=== PATIENT | female | born 1985 | race Caucasian/White ===

== ENCOUNTER 2019-07-18 22:55 | Emergency (ER) | payer OTHER, SELFPAY ==
[2019-07-18 22:58] VITALS: BP 125/70; PULSE 105; RESP 20; TEMP 36.8; O2SAT 96; BMI 47.9
--- NOTE | 2019-07-18 22:58 | DI.RAD.S_ITS ---
PROCEDURE: XR CHEST 2V INDICATIONS: cough with shortness of breath TECHNIQUE: 2 views of the chest were acquired. COMPARISON: None. FINDINGS: Surgical changes and devices: None. Lungs and pleura: An incomplete inspiratory result is noted, causing a crowded appearance to the lung markings. There is a mild amount of fluid seen along the right minor fissure. Minimal streaky opacities can be seen involving the lower lungs. Mediastinum: Mediastinal contours are normal. Heart size is normal. Bones and chest wall: No suspicious bony abnormalities. Soft tissues appear unremarkable. IMPRESSION: A small amount of fluid can be seen along the right greater fissure. Minimal infiltrates versus atelectasis at the lung bases. As clinically appropriate, a short-term followup chest series (with PA and lateral views) performed in deep inspiration is suggested for further evaluation. Note: No significant discrepancy from the preliminary report. Dictated by: Albert Overton M.D. on 07/19/2019 at 8:15 Approved by: Albert Overton M.D. on 07/19/2019 at 8:17
[2019-07-19] MEDS: AZITHROMYCIN 250 MG TABLET 500 MG PO (00:09)
[2019-07-19 00:25] VITALS: BP 100/48; PULSE 82; RESP 20; TEMP 36.9; O2SAT 98
--- NOTE | 2019-07-19 03:12 | ED.URI ---
HPI - URI/Sore Throat General Chief Complaint: Upper Respiratory Symptoms Stated Complaint: cough x3 wks, now hurts to breath Time Seen by Provider: 07/18/19 22:58 Source: patient Mode of arrival: Ambulatory Limitations: no limitations History of Present Illness HPI Narrative: 34-year-old female nonsmoker presents with her family in the chief complaint cough for approximately 3 weeks. She has had a bit of a runny nose but no ear pain, fever nor chest pain. She denies nausea, vomiting or diarrhea. Related Data Previous Rx's Medication Instructions Recorded azithromycin See Rx Instructions .ROUTE 07/18/19 .COMPLEX #6 tab benzonatate [Tessalon Perles] 100 mg PO BID-TID PRN #10 cap 07/18/19 Allergies Allergy/AdvReac Type Severity Reaction Status Date / Time No Known Drug Allergies Allergy Verified 07/19/19 00:10 Review of Systems Constitutional Constitutional: Denies chills, Denies fatigue, Denies fever(s), Denies frequent falls, Denies lethargy and Denies weakness Eyes Eyes: Denies change in vision, Denies eye discharge, Denies irritation and Denies loss of vision ENT Ears, Nose, Mouth, and Throat: Denies change in voice, Denies dizziness, Reports nasal congestion, Denies neck pain, Denies sore throat and Denies throat swelling Cardiovascular Cardiovascular: Denies chest pain, Denies irregular heart rhythm, Denies lightheadedness, Denies palpitations, Denies dyspnea, Denies dyspnea on exertion and Denies orthopnea Respiratory Respiratory: Reports cough, Denies dyspnea, Denies dyspnea on exertion and Denies wheezing Gastrointestinal Gastrointestinal: Denies abdominal pain, Denies change in bowel habits, Denies diarrhea, Denies nausea and Denies vomiting Genitourinary Genitourinary: Denies hematuria, Denies flank pain, Denies urinary incontinence and Denies urinary urgency Musculoskeletal Musculoskeletal: Denies back pain, Denies muscle weakness, Denies neck pain, Denies numbness and Denies tingling Integumentary/Breasts Skin/Breast: Denies pruritus, Denies erythema, Denies rash and Denies wounds Neurologic Neurologic: Denies behavioral changes, Denies confusion, Denies dizziness, Denies frequent falls, Denies loss of vision, Denies numbness, Denies tingling and Denies weakness Psychiatric Psychiatric: Denies anxiety, Denies behavioral changes, Denies confusion, Denies depression, Denies homicidal ideation and Denies suicidal ideation Endocrine Endocrine: Denies fatigue, Denies flushing and Denies palpitations Hematologic/Lymphatic Hematologic/Lymphatic: Denies easy bruising Allergic/Immunologic Allergic/Immunologic: Denies urticaria, Denies throat swelling and Denies wheezing Patient History Social History Smoking Status: Never smoker Substance Use Type: does not use Exam Narrative Exam Narrative: GENERAL: [34] year old patient appears stated age. Morbidly obese, non toxic HEAD: Atraumatic. Normocephalic. EYES: Pupils equal round and reactive. Extraocular motions intact. No scleral icterus. No injection or drainage. ENT: Clear post nasal drip Nose without bleeding, purulent drainage. Throat without erythema, tonsillar hypertrophy or exudate. Airway patent. NECK: Trachea midline. Non tender CARDIOVASCULAR: Regular rate and rhythm without murmurs, gallops, or rubs. RESPIRATORY: Clear to auscultation. Breath sounds equal bilaterally. No wheezes, rales, or rhonchi. GASTROINTESTINAL: Abdomen soft, non-tender, nondistended. EXTREMITIES: No edema or joint tenderness. BACK: Nontender without deformity or crepitance. No flank tenderness. NEURO: AOx3. SKIN: No rash or erythema of visible areas Initial Vital Signs Initial Vital Signs: Vital Signs Temperature 98.3 F 07/18/19 22:58 Pulse Rate 105 H 07/18/19 22:58 Respiratory Rate 20 07/18/19 22:58 Blood Pressure 125/70 07/18/19 22:58 Pulse Oximetry 96 07/18/19 22:58 Course Orders Ordered: ED Orders 07/18/19 22:58 XR chest 2V Stat Discontinued Medications Azithromycin (Zithromax) 500 mg PO NOW ONE Stop: 07/18/19 23:29 Last Admin: 07/19/19 00:09 Dose: 500 mg Documented by: ANGELA Vital Signs Vital signs: Vital Signs - 8 hr 07/18/19 22:58 07/19/19 00:25 Temperature 98.3 F 98.4 F Pulse Rate 105 H 82 Respiratory Rate 20 20 Blood Pressure 125/70 100/48 L Pulse Oximetry 96 98 MDM - URI/Sore Throat Imaging Data Chest x-ray: Attestation: I personally reviewed and interpreted this imaging study as follows: My impression: left lower lobe pna, fluid in R horizontal fissure Discharge Plan Departure Patient Disposition: Home Clinical Impression: Atypical pneumonia Discharge Date/Time: 07/19/19 00:25 Instructions: DI for Atypical Pneumonia Activity Restrictions/Additional Instructions: *You have been diagnosed with [acute atypical pneumonia] *What to do: *Take medications as directed *Follow up with your primary care provider in 2-3 days, call for an appointment. Let them know you were seen in the Emergency Department and that we ask that you be seen in follow up *Return to ER if you should have any new, worsening or concerning symptoms Prescriptions: New azithromycin 250 mg tablet See Rx Instructions .ROUTE .COMPLEX Qty: 6 RF: 0 benzonatate [Tessalon Perles] 100 mg capsule 100 mg PO BID-TID PRN (Reason: cough) Qty: 10 RF: 0
== END 2019-07-19 00:25 | disposition home or self-care (01) ==
PROVIDERS: Emergency Provider Emergency Medicine
DX: J18.9 Pneumonia, unspecified organism (principal)
CPT/HCPCS: 71046; 99282; 99283

== ENCOUNTER → 2020-05-07 12:47 | Outpatient (CLI) | payer OTHER, SELFPAY ==
--- NOTE | 2020-05-07 | DI.MRI.S_ITS ---
PROCEDURE: MR KNEE LT WO CON INDICATIONS: Pain in unspecified knee TECHNIQUE: Noncontrast sagittal PD fast spin echo and T2 fast spin echo with fat saturation, sagittal 3-D FLASH with fat saturation; coronal T1 spin echo and PD fast spin echo with fat saturation, and axial PD fast spin echo with fat saturation through the knee. COMPARISON: None. FINDINGS: FINDINGS: Image quality: Degraded by patient's body habitus Menisci: Linear oblique high T2 signal intensity within the posterior horn medial meniscus is present, demonstrating inferior articular surface extension. Linear oblique high T2 signal intensity within the posterior horn lateral meniscus is present, demonstrating inferior articular surface extension. Cruciate ligaments: The anterior and posterior cruciate ligaments appear intact. Medial structures: The medial collateral ligament appears intact. Visualized portions of the pes anserinus tendons appear normal. No abnormal bursal fluid. Lateral structures: The lateral collateral ligament, long and short heads of the biceps femoris tendon appear intact. The popliteus tendon appears normal. Iliotibial band appears normal. Anterior structures: The quadriceps and patellar tendons appear intact. Lateral patellar subluxation. No femoral trochlear dysplasia or ventral trochlear prominence. No edema in the infrapatellar fat pad. Bones and cartilage: No bone marrow contusions or fractures. Red marrow reconversion within the distal femur and proximal tibia. Mild tricompartmental periarticular osteophyte formation. Multiple subchondral cysts and degenerative marrow edema within the patellar apex and lateral patellar facet. Severe articular cartilage loss overlies the lateral femoral trochlea and lateral patellar facet. Severe articular cartilage loss overlies the patellar apex. Joint space: There is a moderate knee joint effusion and a trace Anderson's cyst. There are multiple intra-articular loose bodies measuring less than 10 mm short axis. Small ganglion cyst along the popliteus is present. Normal appearing synovial plicae are incidentally noted. IMPRESSION: 1. Limited examination secondary to body habitus. 2. Findings consistent with lateral patellofemoral friction syndrome in the appropriate clinical setting. 3. Medial and lateral meniscal tearing. 4. Tricompartmental osteoarthritis with associated articular cartilage loss. 5. Knee joint effusion and intra-articular loose bodies. Dictated by: Amalia Soliman M.D. on 05/09/2020 at 11:18 Approved by: Amalia Soliman M.D. on 05/09/2020 at 11:22
== END ==
PROVIDERS: Referring Provider Orthopaedic Surgery; Visit Provider Orthopaedic Surgery
DX: M25.562 Pain in left knee (principal); S83.282A Other tear of lateral meniscus, current injury, left knee, initial encounter; S83.242A Other tear of medial meniscus, current injury, left knee, initial encounter; M17.12 Unilateral primary osteoarthritis, left knee; M25.462 Effusion, left knee
CPT/HCPCS: 73721

== ENCOUNTER 2020-05-22 14:37 | Emergency (ER) | payer OTHER, SELFPAY ==
[2020-05-22 14:47] VITALS: BP 133/68; PULSE 96; RESP 16; TEMP 36.9; O2SAT 100; BMI 50.1
--- NOTE | 2020-05-22 14:51 | DI.RAD.S_ITS ---
PROCEDURE: XR KNEE LT 3V INDICATIONS: right knee pain, knee stuck TECHNIQUE: 3 views of the knee were acquired. COMPARISON: None. FINDINGS: Bones: No fractures or dislocations. No suspicious bony lesions. Chondrocalcinosis. Buckle lateral compartment osteophytes. Smaller medial compartment osteophytes. Soft tissues: Small joint effusion. No suspicious soft tissue calcifications. IMPRESSION: Degenerative arthritis of the left knee. No evidence acute bony abnormality of the left knee. If clinical suspicion and/or symptoms persist, further assessment with repeat plain films, or advanced imaging (e.g., CT, MRI, or bone scan) may be helpful for further assessment. Dictated by: Pj Gleason M.D. on 05/22/2020 at 14:28 Approved by: Pj Gleason M.D. on 05/22/2020 at 14:29
[2020-05-22] MEDS: HYDROCODONE/ACET 5/325 TABLET 1 TAB PO ×2 (14:59→17:12)
[2020-05-22] MEDS: LIDOCAINE PATCH 1 EACH ADH..PATCH TOP (14:59)
--- NOTE | 2020-05-22 15:05 | PC.NURSE ---
on apr 20 patient knelt down on left knee a little too hard and hurt her knee. Had an MRI and was supposed to see ortho on jun 06. Today can't flex or extend knee and came into to ED for pain.
--- NOTE | 2020-05-22 15:40 | ED.LOWEXIN ---
HPI - Extremity Injury (Lower) <SUSANNAH King - Last Filed: 05/22/20 18:30> General Chief Complaint: Extremity Injury, Lower Stated Complaint: possible torn meniscus in left knee Time Seen by Provider: 05/22/20 14:42 Source: patient Mode of arrival: Wheelchair Limitations: no limitations History of Present Illness HPI Narrative: The patient is a 34-year-old female nonsmoker with history of left knee injury who presents with a chief complaint of left knee pain. She states she was kneeling down on her knee to hard on April 20 and hurt her knee, she has seen her primary care provider and an MRI was completed at the end of last month. She states that today she is unable to fully flex or extend her leg and is in worsening pain. She took ibuprofen at 1:00 p.m.. She denies any specific falls or trauma, though her notes that her child kicked her knee yesterday. She states that the pain has been getting worse over the past few days. She was initially given a prescription of Vicodin, but has not taken it in several days she thinks she finished that prescription at the end of last month. Related Data Previous Rx's Medication Instructions Recorded azithromycin See Rx Instructions .ROUTE 07/18/19 .COMPLEX #6 tab benzonatate [Tessalon Perles] 100 mg PO BID-TID PRN #10 cap 07/18/19 cyclobenzaprine 10 mg PO TID PRN #14 tab 05/22/20 hydrocodone-acetaminophen [Ideal] 1 tab PO Q4-6H PRN #10 tab 05/22/20 lidocaine 1 patch TOP DAILY PRN #15 each 05/22/20 Allergies Allergy/AdvReac Type Severity Reaction Status Date / Time No Known Drug Allergies Allergy Verified 07/19/19 00:10 Review of Systems <SUSANNAH King - Last Filed: 05/22/20 18:30> Review of Systems Narrative: GENERAL: Denies chills, fatigue, malaise, fever, sweats. HEENT: Denies sinus pain, ear pain, sore throat, difficulty swallowing, dizziness. RESPIRATORY: Denies dyspnea, cough, wheezing, hemoptysis, sputum. CARDIOVASCULAR: Denies chest pain, palpitations, orthopnea, edema, GASTROINTESTINAL: Denies nausea, vomiting, abdominal pain, diarrhea, constipation, melena. : Denies dysuria, frequency, incontinence, hematuria, urinary retention. MUSCULOSKELETAL: See HPI SKIN: See HPI NEUROLOGIC: Denies weakness, headache, numbness, change in speech, confusion, seizures, incoordination. PSYCHIATRIC: No concerning psychosocial issues. 12 point review of systems is negative except for those stated above Patient History <SUSANNAH King - Last Filed: 05/22/20 18:30> Social History Smoking Status: Never smoker Smoking Status: Never smoker alcohol intake frequency: 0-2 drinks per day Substance Use Type: does not use Exam <SUSANNAH King - Last Filed: 05/22/20 18:30> Narrative Exam Narrative: GENERAL: This is a well-nourished, well-developed patient, in no acute distress HEAD: Atraumatic. Normocephalic. No temporal or scalp tenderness. EYES: Pupils equal round and reactive. Extraocular motions intact. No scleral icterus. No injection or drainage. ENT: Nose without bleeding, purulent drainage or septal hematoma. No wearing a mask. Airway patent. NECK: Trachea midline. No JVD or lymphadenopathy. Supple, nontender, no meningeal signs. CARDIOVASCULAR: Regular rate and rhythm RESPIRATORY: No cough. No increased respiratory effort. No accessory muscle use. EXTREMITIES: Left knee generalized pain to palpation. Able to lift entire left leg off stretcher. Decreased range of motion all wilson left knee. Positive pedal pulses. BACK: Nontender without deformity or crepitance. No flank tenderness. NEURO: AOx3. SKIN: No rash or erythema on visible skin. Initial Vital Signs Initial Vital Signs: Vital Signs Temperature 98.5 F 05/22/20 14:47 Pulse Rate 96 H 05/22/20 14:47 Respiratory Rate 16 05/22/20 14:47 Blood Pressure 133/68 05/22/20 14:47 Pulse Oximetry 100 05/22/20 14:47 <Tutu Ortega DO - Last Filed: 05/28/20 09:50> Initial Vital Signs Initial Vital Signs: Vital Signs Temperature 98.5 F 05/22/20 14:47 Pulse Rate 96 H 05/22/20 14:47 Respiratory Rate 16 05/22/20 14:47 Blood Pressure 133/68 05/22/20 14:47 Pulse Oximetry 100 05/22/20 14:47 Scores <SUSANNAH King - Last Filed: 05/22/20 18:30> GCS Bunny coma scale eye opening: Spontaneous Bunny coma scale verbal response: Orientated Platinum coma scale motor response: Obey commands Bunny coma scale total score: 15 Course <SUSANNAH King - Last Filed: 05/22/20 18:30> Course Course Narrative: Reviewed the patient's MRI done on 05/07/2020, which shows the radial and lateral meniscal tearing. Also intra-articular loose bodies, osteoarthritis, patellofemoral friction syndrome. Orders Ordered: Discontinued Medications Hydrocodone Bitart/Acetaminophen (Ideal 5/325) 1 tab PO NOW ONE Stop: 05/22/20 14:52 Last Admin: 05/22/20 14:59 Dose: 1 tab Documented by: YONI Hydrocodone Bitart/Acetaminophen (Ideal 5/325) 1 tab PO NOW ONE Stop: 05/22/20 16:07 Last Admin: 05/22/20 17:12 Dose: 1 tab Documented by: YONI Hydrocodone Bitart/Acetaminophen (Vicodin 5/325 Prepack) 1 bottle MISC SEEINSTR ONE Stop: 05/22/20 17:57 Last Admin: 05/22/20 18:08 Dose: 1 bottle Documented by: YONI Cyclobenzaprine HCl (Flexeril) 10 mg PO NOW ONE Stop: 05/22/20 16:07 Last Admin: 05/22/20 17:12 Dose: 10 mg Documented by: YONI Cyclobenzaprine HCl (Flexeril 10 Mg Prepack) 1 bottle MISC SEEINSTR ONE Stop: 05/22/20 17:57 Last Admin: 05/22/20 18:08 Dose: 1 bottle Documented by: YONI Lidocaine (Lidoderm) 1 each TOP NOW ONE Stop: 05/22/20 14:52 Last Admin: 05/22/20 14:59 Dose: 1 each Documented by: YONI Vital Signs Vital signs: Vital Signs - 8 hr 05/22/20 14:47 05/22/20 18:07 Temperature 98.5 F Pulse Rate 96 H 70 Respiratory Rate 16 Blood Pressure 133/68 141/77 H Pulse Oximetry 100 100 <Tutu Ortega DO - Last Filed: 05/28/20 09:50> Orders Ordered: Discontinued Medications Hydrocodone Bitart/Acetaminophen (Ideal 5/325) 1 tab PO NOW ONE Stop: 05/22/20 14:52 Last Admin: 05/22/20 14:59 Dose: 1 tab Documented by: YONI Hydrocodone Bitart/Acetaminophen (Ideal 5/325) 1 tab PO NOW ONE Stop: 05/22/20 16:07 Last Admin: 05/22/20 17:12 Dose: 1 tab Documented by: YONI Hydrocodone Bitart/Acetaminophen (Vicodin 5/325 Prepack) 1 bottle MISC SEEINSTR ONE Stop: 05/22/20 17:57 Last Admin: 05/22/20 18:08 Dose: 1 bottle Documented by: YONI Cyclobenzaprine HCl (Flexeril) 10 mg PO NOW ONE Stop: 05/22/20 16:07 Last Admin: 05/22/20 17:12 Dose: 10 mg Documented by: YONI Cyclobenzaprine HCl (Flexeril 10 Mg Prepack) 1 bottle MISC SEEINSTR ONE Stop: 05/22/20 17:57 Last Admin: 05/22/20 18:08 Dose: 1 bottle Documented by: YONI Lidocaine (Lidoderm) 1 each TOP NOW ONE Stop: 05/22/20 14:52 Last Admin: 05/22/20 14:59 Dose: 1 each Documented by: YONI Vital Signs Vital signs: Vital Signs - 8 hr 05/22/20 14:47 05/22/20 18:07 Temperature 98.5 F Pulse Rate 96 H 70 Respiratory Rate 16 Blood Pressure 133/68 141/77 H Pulse Oximetry 100 100 MDM - Extremity Injury (Lower) <SUSANNAH King - Last Filed: 05/22/20 18:30> Imaging Data Extremity x-ray #1: Radiologist's Impression: [address] [place] [id number] XRay Report Signed Patient: Roseline Christensen LMR#: [id number] : 1985Acct:[id number] Age/Sex: 34 / FDate of Service: 05/22/20 Loc: ED Accession Number: [id number] Procedure: XR knee LT 3V Ordering Provider: Camila Alexander PROCEDURE: XR KNEE LT 3V INDICATIONS: right knee pain, knee stuck TECHNIQUE: 3 views of the knee were acquired. COMPARISON: None. FINDINGS: Bones: No fractures or dislocations. No suspicious bony lesions. Chondrocalcinosis. Buckle lateral compartment osteophytes. Smaller medial compartment osteophytes. Soft tissues: Small joint effusion. No suspicious soft tissue calcifications. IMPRESSION: Degenerative arthritis of the left knee. No evidence acute bony abnormality of the left knee. If clinical suspicion and/or symptoms persist, further assessment with repeat plain films, or advanced imaging (e.g., CT, MRI, or bone scan) may be helpful for further assessment. Dictated by: Pj Gleason M.D. on 05/22/2020 at 14:28 Approved by: Pj Gleason M.D. on 05/22/2020 at 14:29 [facility] Narrative Medical decision making narrative: The patient is a 34-year-old female who presents with persistent left knee pain. She has a MRI that was done a few weeks ago, illustrate meniscal tear. The patient has no acute findings on her x-ray, which is taking given the acute changes that happened today. She is neurovascularly intact throughout her stay in the emergency department. She feels much improved after the above-stated therapies, discussed at length importance of following up with primary care provider as well as Orthopedics as scheduled. Patient has no questions or concerns upon discharge and states understanding return precautions of any acute concerns as well as follow-up care with primary care provider and orthopedics. She is able to weightbear prior to discharge. Discharge Plan Departure Patient Disposition: Home Clinical Impression: Acute pain of left knee Tear meniscus knee Qualifiers: Tear current or old: current Encounter type: subsequent encounter Meniscus of knee: unspecified Meniscus tear of knee type: unspecified type Laterality: left Qualified Code(s): S83.207D - Unspecified tear of unspecified meniscus, current injury, left knee, subsequent encounter Discharge Date/Time: 05/22/20 18:13 Instructions: DI for Meniscal Tear, How To Perform RICE (Rest, Ice, Compress, Elevate), DI for Knee Pain Activity Restrictions/Additional Instructions: Thank you for trusting us with your care today. As I discussed, your x-ray shows no acute fracture. Your MRI from a few weeks ago is suspicious for a meniscus injury. It is important that you follow up with primary care provider, especially if worsening or no improvement. There can be fractures that did not show up on initial x-ray. Please continue to use rest ice compression elevation. I sent 3 prescriptions to [facility] in [place] for you. I have given you a prescription of a narcotic for pain. Be aware that this can be constipating and sedating. I encouraged taking with a stool softener, pushing fluids and fiber. Do not take and drive, operate heavy machinery, etc. Do not combine it with any other sedating substances such as alcohol. The combination of narcotics and alcohol and/or other sedatives can be lethal. Please be aware that we do not provide refills of controlled substances in the emergency department. Please follow up with her primary care provider. The cyclobenzaprine or muscle relaxer can also be sedating. Do not take and drive. Please continue to use rest ice compression elevation. As discussed, please follow-up with primary care provider in the next few days. Please keep your appointment with the orthopedist. Please come back to the emergency department for any acute concerns. Prescriptions: New cyclobenzaprine 10 mg tablet 10 mg PO TID PRN (Reason: muscle spasm) Qty: 14 RF: 0 hydrocodone-acetaminophen [Ideal] 5-325 mg tablet 1 tab PO Q4-6H PRN (Reason: pain) Qty: 10 RF: 0 lidocaine 5 % adhesive patch,medicated 1 patch TOP DAILY PRN (Reason: pain) Qty: 15 RF: 0 No Action azithromycin 250 mg tablet See Rx Instructions .ROUTE .COMPLEX Qty: 6 RF: 0 benzonatate [Tessalon Perles] 100 mg capsule 100 mg PO BID-TID PRN (Reason: cough) Qty: 10 RF: 0 [facility] Stand Alone Forms: Work Release Note <Tutu Ortega DO - Last Filed: 05/28/20 09:50> Cosign ED Attending Edithature Attestation: I was immediately available in the department for consultation. This documentation has been reviewed and I agree with assessment and plan. Supervised by Tutu Ortega DO
[2020-05-22] MEDS: CYCLOBENZAPRINE 10 MG TABLET PO (17:12)
[2020-05-22 18:07] VITALS: BP 141/77; PULSE 70; O2SAT 100
[2020-05-22] MEDS: CYCLOBENZAPRINE 10 MG PREPACK 1 BOTTLE MISC (18:08)
[2020-05-22] MEDS: HYDROCODONE/ACET 5/325 PREPACK 1 BOTTLE MISC (18:08)
--- NOTE | 2020-05-23 17:52 | PC.NURSE ---
Pt called stating that the [place] script did not transmit to the pharmacy. Confirmed that it did not transmit (read as rejected). Jose Peterson reviewed and wrote paper script identical to script written by Camila izaguirre. Pt called and verbalized understanding that someone would have to come and pick script up from ED to fill at pharmacy. Script w/ charge nurse until picked up.
== END 2020-05-22 18:13 | disposition home or self-care (01) ==
PROVIDERS: Emergency Provider Nurse Practitioner Family
DX: S83.207A Unspecified tear of unspecified meniscus, current injury, left knee, initial encounter (principal)
CPT/HCPCS: 73562; 99283

== ENCOUNTER → 2020-12-25 14:35 | Outpatient (CLI) | payer OTHER, SELFPAY ==
--- NOTE | 2020-12-25 14:39 | DI.MRI.S_ITS ---
PROCEDURE: MR KNEE LT WO CON INDICATIONS: Pain in left knee TECHNIQUE: Noncontrast sagittal PD fast spin echo and T2 fast spin echo with fat saturation, sagittal 3-D FLASH with fat saturation; coronal T1 spin echo and PD fast spin echo with fat saturation, and axial PD fast spin echo with fat saturation through the knee. COMPARISON: [facility], CR, XR KNEE LT 3V, 05/22/2020, 14:47. [facility], MR, MR KNEE LT WO CON, 05/07/2020, 13:39. FINDINGS: Suboptimal evaluation secondary to body habitus and associated signal dropout due to surface coil technical limitations. Menisci: Medial meniscus intact. Ill-defined lateral meniscal tear involving the body and posterior horn, with truncation of the free margin of the body . This could reflect post surgical sequela. Cruciate ligaments: Anterior cruciate ligament appears intact. Posterior cruciate ligament appears intact. Medial structures: The medial collateral ligament appears intact. Semimembranosus tendon appears intact. Visualized portions of the pes anserinus tendons appear normal. No abnormal bursal fluid. Lateral structures: The lateral collateral ligament intact. Biceps femoris tendon appears intact. Popliteus tendon grossly unremarkable. Iliotibial band appears intact. Anterior structures: Quadriceps tendon intact. Thickening and ill-defined signal changes involving the lateral patellofemoral ligament at the patellar attachment, although this finding may be unchanged since 05/07/20. Patellar tendon appears intact. Hoffa's fat pad unremarkable. Bones and cartilage: No focal marrow contusion or discrete low signal fracture line. Within the medial compartment, low-grade surface fraying of the central weight-bearing femoral and tibial cartilage. Within the lateral compartment, partial-thickness loss of the central femoral and tibial articular cartilage. There is marked subchondral marrow edema present within the lateral femoral condyle which appears new since the prior study. Within the patellofemoral compartment, severe full-thickness cartilage loss overlying the lateral patellar facet and lateral femoral trochlea. This was not well visualized on the prior study due to motion artifact. There is subchondral marrow edema within the lateral patellar facet Joint space: No pathologic joint effusion. No Anderson's cyst. 5 mm possible loose body seen in the anterior joint space on image 103/9. Additional questionable loose body measuring 4 mm seen at the posterior medial tibial plateau image 64/9. IMPRESSION: Ill-defined lateral meniscal changes, possibly due to postsurgical sequela although cannot entirely exclude recurrent or de neri tear. Please correlate clinically and with operative history. Degenerative joint disease, which has progressed in the lateral compartment since 05/07/20. Possible loose bodies at the anterior and posterior joint spaces as described above. Chronic appearing sprain of the lateral patellofemoral ligament at the patellar attachment. Suboptimal evaluation secondary to body habitus and surface coil limitations. Dictated by: Jon Piper M.D. on 12/26/2020 at 10:08 Approved by: Jon Piper M.D. on 12/26/2020 at 10:20
== END ==
PROVIDERS: PCP Family Medicine; Referring Provider Orthopaedic Surgery; Visit Provider Orthopaedic Surgery
DX: M25.562 Pain in left knee (principal); M17.12 Unilateral primary osteoarthritis, left knee; S76.112A Strain of left quadriceps muscle, fascia and tendon, initial encounter
CPT/HCPCS: 73721

== ENCOUNTER 2021-01-23 21:03 | Emergency (ER) | payer OTHER, SELFPAY ==
[2021-01-23 21:06] VITALS: PULSE 69; RESP 16; TEMP 37.1; O2SAT 100
[2021-01-23 21:10] VITALS: BP 146/81
--- NOTE | 2021-01-23 21:10 | DI.RAD.S_ITS ---
PROCEDURE: XR HUMERUS RT 2V INDICATIONS: fall TECHNIQUE: To views of the humerus were acquired. COMPARISON: None. FINDINGS: Bones: No fractures or dislocations. No suspicious bony lesions. Soft tissues: No suspicious soft tissue calcifications. IMPRESSION: Intact right humerus. Dictated by: Erin Vuong M.D. on 01/23/2021 at 21:53 Approved by: Erin Vuong M.D. on 01/23/2021 at 21:53
--- NOTE | 2021-01-23 21:10 | DI.RAD.S_ITS ---
PROCEDURE: XR ELBOW RT MIN 3V INDICATIONS: fall TECHNIQUE: Three views of the elbow were acquired. COMPARISON: None. FINDINGS: Bones: No fractures or dislocations. No suspicious bony lesions. Soft tissues: No elbow joint effusion. No suspicious soft tissue calcifications. IMPRESSION: Intact right elbow. Dictated by: Erin Vuong M.D. on 01/23/2021 at 21:53 Approved by: Erin Vuong M.D. on 01/23/2021 at 21:54
--- NOTE | 2021-01-23 22:49 | ED_ITS ---
HPI - General Adult General Chief complaint: Extremity Injury, Upper Stated complaint: Hurt right arm Time Seen by Provider: 01/23/21 21:13 Source: patient Mode of arrival: Ambulatory Limitations: no limitations History of Present Illness HPI narrative: 35-year-old female who is here for evaluation approximately 24 hours after sustaining a ground level fall yesterday. States that she fell as unsure exactly how she landed but she did sustain an abrasion to the outside of her right elbow. Since that time she has had discomfort in the lower portion of her upper arm and around her elbow. No wrist pain or shoulder pain. Related Data Previous Rx's Medication Instructions Recorded azithromycin See Rx Instructions .ROUTE 07/18/19 .COMPLEX #6 tab benzonatate [Tessalon Perles] 100 mg PO BID-TID PRN #10 cap 07/18/19 cyclobenzaprine 10 mg PO TID PRN #14 tab 05/22/20 hydrocodone-acetaminophen [Mcallister] 1 tab PO Q4-6H PRN #10 tab 05/22/20 lidocaine 1 patch TOP DAILY PRN #15 each 05/22/20 Allergies Allergy/AdvReac Type Severity Reaction Status Date / Time No Known Drug Allergies Allergy Verified 07/19/19 00:10 Review of Systems Musculoskeletal Musculoskeletal: Denies tingling Comments: Right arm pain Integumentary/Breasts Comments: Abrasions on right elbow Neurologic Neurologic: Denies tingling Hematologic/Lymphatic On Anticoagulants: No Allergic/Immunologic Allergic/Immunologic: Reports system reviewed and no additional complaints, except as documented Patient History Medical History Healthy adult Social History Smoking Status: Never smoker Smoking Status: Never smoker alcohol intake frequency: 0-2 drinks per day Substance Use Type: does not use Exam Initial Vital Signs Initial Vital Signs: Vital Signs Temperature 98.7 F 01/23/21 21:06 Pulse Rate 69 01/23/21 21:06 Respiratory Rate 16 01/23/21 21:06 Pulse Oximetry 100 01/23/21 21:06 Const General: cooperative and comfortable Limitations: mental status not altered HENMT Head: normal to inspection and normocephalic Cardio Pulses: radial pulses present on the right Skin Other: Superficial abrasions lateral aspect of right arm around elbow Neuro Sensory Exam: no sensory deficits noted Extrem Other: Full range of motion of right shoulder. Full range of motion right elbow. Can pronate and supinate. Can flex and extend the right wrist. Psych Appearance: grossly normal and well kempt Course Orders Ordered: ED Orders 01/23/21 21:10 XR elbow RT min 3V Stat XR humerus RT 2V Stat Vital Signs Vital signs: Vital Signs - 8 hr 01/23/21 21:06 01/23/21 21:10 Temperature 98.7 F Pulse Rate 69 Respiratory Rate 16 Blood Pressure 146/81 H Pulse Oximetry 100 Medical Decision Making Imaging Data Extremity x-ray #1: Radiologist's Impression: [address] [id number] ReportSigned Patient: Roseline Christensen LMR#: [id number]: 1985Acct:[id number]/Sex: 35 / FDate of Service: 01/23/21Loc: EDAccession Number: [id number] Procedure: XR elbow RT min 3V Ordering Provider: Mansoor Carvajal D.O. PROCEDURE: XR ELBOW RT MIN 3V INDICATIONS: fall TECHNIQUE: Three views of the elbow were acquired. COMPARISON: None. FINDINGS: Bones: No fractures or dislocations. No suspicious bony lesions. Soft tissues: No elbow joint effusion. No suspicious soft tissue calcifications. IMPRESSION: Intact right elbow. Dictated by: Erin Vuong M.D. on 01/23/2021 at 21:53 Approved by: Erin Vuong M.D. on 01/23/2021 at 21:54 Extremity x-ray #2: Radiologist's Impression: [address] [id number] ReportSigned Patient: Roseline Christensen LMR#: [id number]: 1985Acct:[id number]/Sex: 35 / FDate of Service: 01/23/21Loc: EDAccession Number: [id number] Procedure: XR humerus RT 2V Ordering Provider: Mansoor Carvajal D.O. PROCEDURE: XR HUMERUS RT 2V INDICATIONS: fall TECHNIQUE: To views of the humerus were acquired. COMPARISON: None. FINDINGS: Bones: No fractures or dislocations. No suspicious bony lesions. Soft tissues: No suspicious soft tissue calcifications. IMPRESSION: Intact right humerus. Dictated by: Erin Vuong M.D. on 01/23/2021 at 21:53 Approved by: Erin Vuong M.D. on 01/23/2021 at 21:53 [facility] Narrative Medical decision making narrative: Neurovascular intact, no fractures noted on the x-rays. Afebrile. The abrasions needed intervention here in the ER. Patient was given care instructions and return precautions. She expressed understanding and agreement. Discharge Plan Departure Patient Disposition: Home Clinical Impression: Sprain of elbow, right, Abrasion of skin Instructions: How To Perform RICE (Rest, Ice, Compress, Elevate) Activity Restrictions/Additional Instructions: There were no fractures noted on the x-rays. The skin abrasion just needs to be kept clean. You can shower like normal. I do recommend that you ice your elbow as this may help with the discomfort. Return to the emergency department for any new or worsening symptoms Prescriptions: No Action azithromycin 250 mg tablet See Rx Instructions .ROUTE .COMPLEX Qty: 6 RF: 0 benzonatate [Tessalon Perles] 100 mg capsule 100 mg PO BID-TID PRN (Reason: cough) Qty: 10 RF: 0 cyclobenzaprine 10 mg tablet 10 mg PO TID PRN (Reason: muscle spasm) Qty: 14 RF: 0 hydrocodone-acetaminophen [Mcallister] 5-325 mg tablet 1 tab PO Q4-6H PRN (Reason: pain) Qty: 10 RF: 0 lidocaine 5 % adhesive patch,medicated 1 patch TOP DAILY PRN (Reason: pain) Qty: 15 RF: 0 Referrals: Tricia Condon [Primary Care Provider] -
== END 2021-01-23 23:28 | disposition home or self-care (01) ==
PROVIDERS: Emergency Provider Emergency Medicine; PCP Family Medicine
DX: S53.401A Unspecified sprain of right elbow, initial encounter (principal); S50.311A Abrasion of right elbow, initial encounter; W19.XXXA Unspecified fall, initial encounter
CPT/HCPCS: 73060; 73080; 99283